=== PATIENT | female | born 2000 | race Two or more races ===

== ENCOUNTER 2023-02-27 05:48 | Emergency (ER) | payer OTHER ==
[~2023-02-27] VITALS: Ht 170.2 cm; Wt 109.0 kg
[2023-02-27 06:02] VITALS: BP 131/71; PULSE 84; RESP 15; O2SAT 99
[2023-02-27] MEDS ORDERED: SODIUM CHLORIDE 0.9% 1,000 ML IV ONE (07:00)
== END 2023-02-27 07:05 | disposition left against medical advice (07) ==
LOC: ER 05:48
DX: O26.891 Other specified pregnancy related conditions, first trimester (principal); R10.13 Epigastric pain; Z53.21 Procedure and treatment not carried out due to patient leaving prior to being seen by health care provider